=== PATIENT | female | born 1965 ===

== ENCOUNTER 2019-07-29 23:01 | Inpatient (IN) | payer BC ==
[2019-07-30 07:41] LABS: Basophils # (Auto) 0.1 K/mm3 (0.0-0.1); Basophils % (Auto) 0.7 % (0.0-1.8); Eosinophils # (Auto) 0.1 K/mm3 (0.0-0.4); Eosinophils % (Auto) 0.5 % (0.0-4.3); Hematocrit 30.7 % (30.3-42.9); Hemoglobin 10.1 gm/dl (10.1-14.3); Lymphocytes # (Auto) 2.4 K/mm3 (1.2-5.4); Lymphocytes % (Auto) 20.9 % (13.4-35.0); Mean Corpuscular HGB Conc 33 % (30-34); Mean Corpuscular Volume 86 fl (79-97); Monocytes # (Auto) 0.9 K/mm3 (0.0-0.8); Monocytes % (Auto) 7.5 % (0.0-7.3); Platelet Count 322 K/mm3 (140-440); Red Blood Count 3.57 M/mm3 (3.65-5.03); Red Cell Distribution Width 16.5 % (13.2-15.2)
[2019-07-30] MEDS ORDERED: PROVENTIL IH PRN ×2 (07:41→14:55)
[2019-07-30 08:02] LABS: Calcium 8.6 mg/dL (8.4-10.2)
--- NOTE | 2019-07-30 08:48 | Consultation ---
History of Present Illness - Reason for Consult Consult date: 07/30/19 medical management, Requesting physician: ALL PATEL - History of Present Illness Patient is a 53-year-old female with past medical history of anxiety disorder, CHF, COPD, CAD, depression, hyperlipidemia, hypertension, schizophrenia, GERD, who presents to us from referring facility with depression and suicidal thoughts Stating that she wanted to end her life. Per documentation the patient had in the past tried to overdose on pills. She does not endorse to any other medical condition but reports recent fall and injury to the right foot. she complains of multiple other psych issues but states she will rather speak to the psychiatrist. Per documentation review, the Patient was recently treated for Pneumonia, She denies any fever, nausea, vomiting or diarrhea Past History Past Medical History: GERD, hyperthyroidism, hypertension, hyperlipidemia Past Surgical History: No surgical history Social history: no significant social history, full code Family history: no significant family history Medications and Allergies Allergies Allergy/AdvReac Type Severity Reaction Status Date / Time IV Contrast AdvReac Kidneys Uncoded 07/30/19 01:35 shut down Home Medications Medication Instructions Recorded Confirmed Last Taken Type ALBUTEROL Inhaler (OR & NICU) 2 puff INHALATION Q6HR PRN 07/30/19 07/30/19 Unknown History Aspirin EC [Halfprin EC] 81 mg PO DAILY 07/30/19 07/30/19 Unknown History AtorvaSTATin [Lipitor] 40 mg PO DAILY 07/30/19 07/30/19 Unknown History Buprenorphine HCl [Belbuca] 75 mcg SUBMUCOSAL BID 07/30/19 07/30/19 Unknown History Buspirone HCl [busPIRone] 15 mg PO QID 07/30/19 07/30/19 Unknown History Clopidogrel [Plavix] 75 mg PO DAILY 07/30/19 07/30/19 Unknown History Fluticasone/Umeclidin/Vilanter 1 puff INHALATION DAILY 07/30/19 07/30/19 Unknown History [Trelegy Ellipta 100-62.5-25] Gabapentin [Neurontin] 900 mg PO TID 07/30/19 07/30/19 Unknown History Hydrocodone-Acetamin 1 - 2 tab PO Q8HR PRN 07/30/19 07/30/19 Unknown History Meclizine [Antivert] 25 mg PO TID PRN 07/30/19 07/30/19 Unknown History Metoprolol [Lopressor TAB] 50 mg PO BID 07/30/19 07/30/19 Unknown History OLANzapine [ZyPREXA] 10 mg PO QHS 07/30/19 07/30/19 Unknown History Pantoprazole [Protonix TAB] 40 mg PO DAILY 07/30/19 07/30/19 Unknown History Proventil 0.083% NEBS 3 ml INHALATION Q4HR PRN 07/30/19 07/30/19 Unknown History Venlafaxine [Effexor] 75 mg PO TID 07/30/19 07/30/19 Unknown History Vitamin D2 50,000 unit PO QWEEK 07/30/19 07/30/19 Unknown History traMADol [Ultram 50 MG tab] 50 mg PO Q8HR PRN 07/30/19 07/30/19 Unknown History Active Meds: Active Medications Albuterol (Proventil) 2.5 mg IH Q4HRT PRN PRN Reason: Shortness Of Breath Last Admin: 07/30/19 07:47 Dose: 2.5 mg Documented by: Review of Systems All systems: negative Constitutional: fatigue, weakness, lethargy, no weight loss, no weight gain, no fever, no chills, no sweats, no night sweats, no malaise Cardiovascular: no chest pain, no orthopnea, no palpitations, no rapid/irregular heart beat, no edema, no syncope Respiratory: no cough, no cough with sputum, no excessive sputum, no hemoptysis, no shortness of breath, no dyspnea on exertion Gastrointestinal: no abdominal pain, no nausea, no vomiting, no diarrhea, no constipation, no change in bowel habits, no hematochezia Musculoskeletal: frequent falls, other (RIGHT FOOT PAIN, CHRONIC IMPROVING), no neck pain, no arm numbness/tingling, no low back pain, no shooting leg pain, no leg numbness/tingling, no muscle weakness, no muscle cramps Integumentary: no deferred, no pruritis, no redness, no jaundice, no lesions, no depigmentation, no acne, no dryness Neurological: no transient paralysis, no weakness, no parathesias, no numbness, no tingling, no syncope, no convulsions, no change in speech, no confusion Psychiatric: anxiety, suicidal ideation, depression Endocrine: no heat intolerance, no polydipsia, no nocturia, no thyroid mass, no high blood sugars, no low blood sugars Allergic/Immunologic: no allergic rhinitis, no persistent infections, no angioedema Exam - Physical Exam Narrative exam: VITAL SIGNS: Reviewed. GENERAL: The patient appears normally developed, Vital signs as documented. HEAD: No signs of head trauma. EYES: Pupils are equal. Extraocular motions intact. EARS: Hearing grossly intact. MOUTH: Oropharynx is normal. NECK: No adenopathy, no JVD. CHEST: Chest with clear breath sounds bilaterally. No wheezes, rales, or rhonchi. CARDIAC: Regular rate and rhythm. S1 and S2, without murmurs, gallops, or rubs. VASCULAR: No Edema. Peripheral pulses normal and equal in all extremities. ABDOMEN: Soft, non tender and non distended. No rebound or guarding, and no masses palpated. Bowel Sounds normal. MUSCULOSKELETAL: Good range of motion of all major joints. Extremities without clubbing, cyanosis or edema. NEUROLOGIC EXAM: Alert and oriented x 3 No focal sensory or strength deficits. Speech normal. Follows commands. PSYCHIATRIC: Mood normal. SKIN: detail exam as documented in skin assessment, Echymosis on the right foot - Constitutional Vitals: Temp Pulse Resp BP Pulse Ox 81 16 100 07/30/19 07:47 07/30/19 07:47 07/30/19 07:52 Results - Labs CBC & Chem 7: 07/31/19 08:07 07/31/19 08:07 Labs: Abnormal lab results 07/30/19 07/30/19 07/30/19 Range/Units 03:46 07:29 07:29 WBC 11.4 H (4.5-11.0) K/mm3 RBC 3.57 L (3.65-5.03) M/mm3 RDW 16.5 H (13.2-15.2) % [place] % (Auto) 7.5 H (0.0-7.3) % [place] # 0.9 H (0.0-0.8) K/mm3 Seg Neutrophils % 70.4 H (40.0-70.0) % Seg Neutrophils # 8.0 H (1.8-7.7) K/mm3 Carbon Dioxide 20 L (22-30) mmol/L BUN 28 H (7-17) mg/dL Creatinine 1.4 H (0.7-1.2) mg/dL Glucose 107 H (65-100) mg/dL POC Glucose 129 H (70-105) Assessment and Plan Patient is a 53-year-old female with past medical history of anxiety disorder, CHF, COPD, CAD, depression, hyperlipidemia, hypertension, schizophrenia, GERD, w ho presents to us from referring facility with depression and suicidal thoughts Stating that she wanted to end her life. Per documentation the patient had in the past tried to overdose on pills. She does not endorse to any other medical condition but reports recent fall and injury to the right foot. she complains of multiple other psych issues but states she will rather speak to the psychiatrist. Per documentation review, the Patient was recently treated for Pneumonia, She denies any fever, nausea, vomiting or diarrhea PNA- Recently treated Leukocytosis secondary PNA DELIA secondary to vasomotor nephropathy creat of 1.4 ?baseline. Stable CHF COPD MORBID OBESITY RECENT INJURY TO RIGHT LEG, NO REPORT OF FRACTURE HTN HLP DEPRESSION SUICIDAL IDEATION SCHIZOPHRENIA GERD PLAN Monitor off Abx Repeat labs in am Resume all outside meds and defer psych meds to psychaitrist Check x ray of right foot counselling on weight loss Pain control DVT/GI prophy
--- NOTE | 2019-07-30 08:57 | History and Physical Report ---
GP History & Physical - History of Present Illness Date of admission: 07/29/19 Date of Examination: 07/30/19 Reason for Admission: Danger to self, Severe anxiety/depression Chief Complaint: Sucidal Ideations History of Present Illness: The patient is a 53 year old but unemployed female with history of Schizophrenia, Bipolar disorder, Anxiety disorder and multiple medical problems. She presents with depression and suicidal thoughts. In my interview with her this morning, she states that she wanted to end her life while receiving services at [place]. Pt states that her daughter 10 years ago in a car wreck at the age of 16, and she has been struggling with anxiety/ depression since. Pt stated that she is paranoid and constantly experience panic attacks that last about 15-20 mins, which her dogs comfort her through. Pt is not sleeping well and complains of insomnia meds not working. Pt stated that she have nightmares and flashbacks of the day she lost her daughter, which she believes is also a reason that she can not sleep at night. Pt stated that she feel lonely due to her marriage separation and adult children no longer wanting to visit her. Pt stated that there are voices in her head telling her to hurt other individuals, especially her and sometimes herself. She denies homicidal thoughts or intent. Pt stated that the voices tells her she is worthless and sometimes to harm herself. Pt states that she often start things and don't get them finish. Pt lives next door to her who she is currently from, pt stated that she do have a gun but her has already came to her house and hid the gun and she is not aware of the location of the gun. Pt has been admitted to a psychiatry unit 3-4 times after attempting a suicide overdose each time. Pt admits that she manages or has managed her condition by being sexual with multiple men or going out spending money on clothes. Pt stated that if she didn't have the money then she would steal from [facility]. Pt is concerned about her current medications and would like to know if the side effects are altering her mental health condition. Pt agreed to try new meds. Pt still drives, denies any diagnosis of PTSD and not seeing a psych physician due to insurance coverage. FAMILY HISTORY Sister has hx of depression Legal Status: Voluntary Patient Problems: Current Active Problems Schizoaffective disorder, bipolar type (Acute) Reaction to Hospitalization: Accepting Medications and Allergies Allergies Allergy/AdvReac Type Severity Reaction Status Date / Time IV Contrast AdvReac Kidneys Uncoded 07/30/19 01:35 shut down Home Medications Medication Instructions Recorded Confirmed Last Taken Type ALBUTEROL Inhaler (OR & NICU) 2 puff INHALATION Q6HR PRN 07/30/19 07/30/19 Unknown History Aspirin EC [Halfprin EC] 81 mg PO DAILY 07/30/19 07/30/19 Unknown History AtorvaSTATin [Lipitor] 40 mg PO DAILY 07/30/19 07/30/19 Unknown History Buprenorphine HCl [Belbuca] 75 mcg SUBMUCOSAL BID 07/30/19 07/30/19 Unknown History Buspirone HCl [busPIRone] 15 mg PO QID 07/30/19 07/30/19 Unknown History Clopidogrel [Plavix] 75 mg PO DAILY 07/30/19 07/30/19 Unknown History Fluticasone/Umeclidin/Vilanter 1 puff INHALATION DAILY 07/30/19 07/30/19 Unknown History [Trelegy Ellipta 100-62.5-25] Gabapentin [Neurontin] 900 mg PO TID 07/30/19 07/30/19 Unknown History Hydrocodone-Acetamin 1 - 2 tab PO Q8HR PRN 07/30/19 07/30/19 Unknown History Meclizine [Antivert] 25 mg PO TID PRN 07/30/19 07/30/19 Unknown History Metoprolol [Lopressor TAB] 50 mg PO BID 07/30/19 07/30/19 Unknown History OLANzapine [ZyPREXA] 10 mg PO QHS 07/30/19 07/30/19 Unknown History Pantoprazole [Protonix TAB] 40 mg PO DAILY 07/30/19 07/30/19 Unknown History Proventil 0.083% NEBS 3 ml INHALATION Q4HR PRN 07/30/19 07/30/19 Unknown History Venlafaxine [Effexor] 75 mg PO TID 07/30/19 07/30/19 Unknown History Vitamin D2 50,000 unit PO QWEEK 07/30/19 07/30/19 Unknown History traMADol [Ultram 50 MG tab] 50 mg PO Q8HR PRN 07/30/19 07/30/19 Unknown History Active Meds: Active Medications Albuterol (Proventil) 2.5 mg IH Q4HRT PRN PRN Reason: Shortness Of Breath Last Admin: 07/30/19 07:47 Dose: 2.5 mg Documented by: Substance History - Substance History Drug Use: none Hx Tobacco Use: Yes Tobacco Type: Cigarettes Cigarettes Packs Per Day: 1 How many years smokin Alcohol Use: No Past psychiatric history - Past Medical History Past Medical History: arthritis, COPD, GERD, hypertension (motion sickness), hyperlipidemia, other (anxiety, CHF, depression, ABRAMS, motion sickness, myocardial infarction, panic attack, schizophrenia, shortness of breath, sleep apnea, suicide attempts, pysch admission) Past Surgical History: hysterectomy, Other (Ankle fracture surgery, colonoscopy, Upper GI Endoscopy, colonoscopy, coronary angioplasty with stent placement, back surgery, cardiac surgery, cholecystectomy, oophorectomy) - past Psychiatric treatment and history Psych: Anxiety, Bipolar, Depression, Panic, Schizophrenia psychiatric treatment history: Pt denies ever being prescribed Depakene, Tegretol, [place] or Risperidone but agrees to the treatment plan and is willing to try the medications to better her symptoms. - Social History Social history: , Lives alone, smoking Review of Systems All systems: negative Psychiatric: anxiety, insomnia, suicidal ideation, hallucinations, paranoia, depression, anxiety attacks, sadness/tearfullness Results - Results Labs/Vitals: Laboratory Last Values WBC 11.4 K/mm3 (4.5-11.0) H 07/30/19 07:29 RBC 3.57 M/mm3 (3.65-5.03) L 07/30/19 07:29 Hgb 10.1 gm/dl (10.1-14.3) 07/30/19 07:29 Hct 30.7 % (30.3-42.9) 07/30/19 07:29 MCV 86 fl (79-97) 07/30/19 07:29 MCH 28 pg (28-32) 07/30/19 07:29 MCHC 33 % (30-34) 07/30/19 07:29 RDW 16.5 % (13.2-15.2) H 07/30/19 07:29 Plt Count 322 K/mm3 (140-440) 07/30/19 07:29 Lymph % (Auto) 20.9 % (13.4-35.0) 07/30/19 07:29 [place] % (Auto) 7.5 % (0.0-7.3) H 07/30/19 07:29 Eos % (Auto) 0.5 % (0.0-4.3) 07/30/19 07:29 Baso % (Auto) 0.7 % (0.0-1.8) 07/30/19 07:29 Lymph # 2.4 K/mm3 (1.2-5.4) 07/30/19 07:29 [place] # 0.9 K/mm3 (0.0-0.8) H 07/30/19 07:29 Eos # 0.1 K/mm3 (0.0-0.4) 07/30/19 07:29 Baso # 0.1 K/mm3 (0.0-0.1) 07/30/19 07:29 Seg Neutrophils % 70.4 % (40.0-70.0) H 07/30/19 07:29 Seg Neutrophils # 8.0 K/mm3 (1.8-7.7) H 07/30/19 07:29 Sodium 139 mmol/L (137-145) 07/30/19 07:29 Potassium 4.0 mmol/L (3.6-5.0) 07/30/19 07:29 Chloride 106.0 mmol/L (98-107) 07/30/19 07:29 Carbon Dioxide 20 mmol/L (22-30) L 07/30/19 07:29 Anion Gap 17 mmol/L 07/30/19 07:29 BUN 28 mg/dL (7-17) H 07/30/19 07:29 Creatinine 1.4 mg/dL (0.7-1.2) H 07/30/19 07:29 Estimated GFR 39 ml/min 07/30/19 07:29 BUN/Creatinine Ratio 20 % 07/30/19 07:29 Glucose 107 mg/dL (65-100) H 07/30/19 07:29 POC Glucose 129 (70-105) H 07/30/19 03:46 Hemoglobin A1c 5.7 % (4-6) 07/30/19 07:29 Calcium 8.6 mg/dL (8.4-10.2) 07/30/19 07:29 Last Vital Signs Temp Pulse 81 07/30/19 07:47 Resp 16 07/30/19 07:47 BP Pulse Ox 100 07/30/19 07:52 Physical Examination - Constitutional Vitals: Vital Signs Temp Pulse Resp BP Pulse Ox 81 16 100 07/30/19 07:47 07/30/19 07:47 07/30/19 07:52 General appearance: Present: no acute distress, well-nourished, obese - EENT Eyes: Present: PERRL, EOM intact ENT: hearing intact, clear oral mucosa - Neck Neck: Present: supple, normal ROM - Respiratory Respiratory effort: normal Mental Status Exam - Vital signs Last Vital Signs Temp Pulse 81 07/30/19 07:47 Resp 16 07/30/19 07:47 BP Pulse Ox 100 07/30/19 07:52 - Exam Orientation: time, place, person Affect: depressed Mood: congruent with affect Thought content: delusions, paranoia Thought Process: Intact Perceptions: auditory, hallucinations Speech: normal rate and pattern Concentration: focused Motor activity: normal Level of consciousness: alert Memory: Intact Sleep Symptoms: Insomnia Interaction: cooperative Mini mental status exam(if necessary): 24-30 Assessment and Plan - Psychiatric problem (1) Schizoaffective disorder, bipolar type Current Visit: Yes Status: Acute plan to address problem: Patient will be admitted for inpatient psychiatric evaluation, medication adjustment and close monitoring The patient's behavior, mood, sleep and appetite will be closely monitored. Patient will be enrolled in individual and group therapeutic sessions and encouraged to attend. Patient will be provided with a safe and structured environment. Patient's physical health needs will be addressed by the Hospitalist. Social Assessment will be completed and the Tub Tender will work with patient and family to ensure a suitable and safe disposition Medication adjustment will be made as clinically indicated The patient agreed on the treatment plan, understood the risk, benefit, alternative treatment, potential consequence of no treatment, and gave informed consent. Physician Certification - Certification Statement Physician Certification Statement: This is an acknowledgement statement that HUGO GIBBONS is a 53 year old F who requires inpatient psychiatric admission for treatment which could reasonably be expected to improve the patient's condition for SCHIZOAFFECTIVE DISORDER Estimated period of time patient will need to remain in the hospital: [7 DAYS ] Plan for post-hospital care: [ OUTPATIENT TREATMENT] Medications & Allergies - Medications Allergies/Adverse Reactions: Allergies IV Contrast Adverse Reaction (Uncoded 07/30/19 01:35) Kidneys shut down Home Medications: Home Medications Medication Instructions Recorded Confirmed Last Taken Type ALBUTEROL Inhaler (OR & NICU) 2 puff INHALATION Q6HR PRN 07/30/19 07/30/19 Unknown History Aspirin EC [Halfprin EC] 81 mg PO DAILY 07/30/19 07/30/19 Unknown History AtorvaSTATin [Lipitor] 40 mg PO DAILY 07/30/19 07/30/19 Unknown History Buprenorphine HCl [Belbuca] 75 mcg SUBMUCOSAL BID 07/30/19 07/30/19 Unknown History Buspirone HCl [busPIRone] 15 mg PO QID 07/30/19 07/30/19 Unknown History Clopidogrel [Plavix] 75 mg PO DAILY 07/30/19 07/30/19 Unknown History Fluticasone/Umeclidin/Vilanter 1 puff INHALATION DAILY 07/30/19 07/30/19 Unknown History [Trelegy Ellipta 100-62.5-25] Gabapentin [Neurontin] 900 mg PO TID 07/30/19 07/30/19 Unknown History Hydrocodone-Acetamin 1 - 2 tab PO Q8HR PRN 07/30/19 07/30/19 Unknown History Meclizine [Antivert] 25 mg PO TID PRN 07/30/19 07/30/19 Unknown History Metoprolol [Lopressor TAB] 50 mg PO BID 07/30/19 07/30/19 Unknown History OLANzapine [ZyPREXA] 10 mg PO QHS 07/30/19 07/30/19 Unknown History Pantoprazole [Protonix TAB] 40 mg PO DAILY 07/30/19 07/30/19 Unknown History Proventil 0.083% NEBS 3 ml INHALATION Q4HR PRN 07/30/19 07/30/19 Unknown History Venlafaxine [Effexor] 75 mg PO TID 07/30/19 07/30/19 Unknown History Vitamin D2 50,000 unit PO QWEEK 07/30/19 07/30/19 Unknown History traMADol [Ultram 50 MG tab] 50 mg PO Q8HR PRN 07/30/19 07/30/19 Unknown History Active Medications: Generic Name Dose Route Start Last Admin Trade Name Freq PRN Reason Stop Dose Admin Albuterol 2.5 mg 07/30/19 07:41 07/30/19 07:47 Proventil IH 2.5 mg Q4HRT PRN Administration Shortness Of Breath Albuterol 2.5 mg 07/30/19 14:55 Proventil IH Q4HRT PRN Wheezing Aspirin 81 mg 07/30/19 15:00 Halfprin Ec PO DAILY [facility] Atorvastatin Calcium 40 mg 07/30/19 14:45 Lipitor PO DAILY [facility] Clopidogrel Bisulfate 75 mg 07/30/19 15:00 Plavix PO DAILY [facility] Gabapentin 900 mg 07/30/19 20:00 Neurontin PO TID [facility] Meclizine HCl 25 mg 07/30/19 14:40 Antivert PO TID PRN Vertigo Metoprolol Tartrate 50 mg 07/30/19 15:00 Lopressor PO BID [facility] Miscellaneous Medication 75 mcg 07/30/19 14:45 Buprenorphine Hcl [Belbuca] SUBMUCOSAL BID [facility] Miscellaneous Medication 15 mg 07/30/19 18:00 Buspirone Hcl [Buspirone] PO QID [facility] Miscellaneous Medication 1 puff 07/30/19 14:45 Fluticasone/Umeclidin/Vilanter [Trelegy Ellipta 100-62.5-25] INHALATION DAILY [facility] Miscellaneous Medication 1 - 2 tab 07/30/19 14:40 Hydrocodone-Acetamin 10-325/15 PO Q8HR PRN SEVERE PAIN Miscellaneous Medication 3 ml 07/30/19 14:40 Proventil 0.083% Nebs INHALATION Q4HR PRN Wheezing Miscellaneous Medication 50,000 unit 08/06/19 10:00 Vitamin D2 PO QWEEK [facility] Nicotine 21 mg 07/30/19 15:00 Habitrol TD QDAY [facility] Olanzapine 10 mg 07/30/19 22:00 Zyprexa PO QHS [facility] Pantoprazole Sodium 40 mg 07/30/19 15:00 Protonix PO DAILY [facility] Venlafaxine HCl 75 mg 07/30/19 20:00 Effexor PO TID [facility]
--- NOTE | 2019-07-30 10:06 | Progress Note ---
Subjective Date of service: 07/30/19 Principal diagnosis: Anxiety/Depression Subjective Comment: 53 year old female stated that she wanted to end her life while receiving services at [facility]. Pt states that her daughter 10 years ago and she has been struggling with anxiety/ depression since. Pt stated that she feel lonely due to her marriage separation and adult children no longer wanting to visit her. Objective - Criteria for Continued Treatment Criteria for Continued Treatment: Understanding Diagnosis and need for Medication, Improving Treatment / Medication Compliance - Mental Status Mental Status: Oriented x 3 - Objective Observation Participation Level: Full Medications and Allergies Allergies Allergy/AdvReac Type Severity Reaction Status Date / Time IV Contrast AdvReac Kidneys Uncoded 07/30/19 01:35 shut down Home Medications Medication Instructions Recorded Confirmed Last Taken Type ALBUTEROL Inhaler (OR & NICU) 2 puff INHALATION Q6HR PRN 07/30/19 07/30/19 Unknown History Aspirin EC [Halfprin EC] 81 mg PO DAILY 07/30/19 07/30/19 Unknown History AtorvaSTATin [Lipitor] 40 mg PO DAILY 07/30/19 07/30/19 Unknown History Buprenorphine HCl [Belbuca] 75 mcg SUBMUCOSAL BID 07/30/19 07/30/19 Unknown History Buspirone HCl [busPIRone] 15 mg PO QID 07/30/19 07/30/19 Unknown History Clopidogrel [Plavix] 75 mg PO DAILY 07/30/19 07/30/19 Unknown History Fluticasone/Umeclidin/Vilanter 1 puff INHALATION DAILY 07/30/19 07/30/19 Unknown History [Trelegy Ellipta 100-62.5-25] Gabapentin [Neurontin] 900 mg PO TID 07/30/19 07/30/19 Unknown History Hydrocodone-Acetamin 1 - 2 tab PO Q8HR PRN 07/30/19 07/30/19 Unknown History Meclizine [Antivert] 25 mg PO TID PRN 07/30/19 07/30/19 Unknown History Metoprolol [Lopressor TAB] 50 mg PO BID 07/30/19 07/30/19 Unknown History OLANzapine [ZyPREXA] 10 mg PO QHS 07/30/19 07/30/19 Unknown History Pantoprazole [Protonix TAB] 40 mg PO DAILY 07/30/19 07/30/19 Unknown History Proventil 0.083% NEBS 3 ml INHALATION Q4HR PRN 07/30/19 07/30/19 Unknown History Venlafaxine [Effexor] 75 mg PO TID 07/30/19 07/30/19 Unknown History Vitamin D2 50,000 unit PO QWEEK 07/30/19 07/30/19 Unknown History traMADol [Ultram 50 MG tab] 50 mg PO Q8HR PRN 07/30/19 07/30/19 Unknown History Active Meds: Active Medications Albuterol (Proventil) 2.5 mg IH Q4HRT PRN PRN Reason: Shortness Of Breath Last Admin: 07/30/19 07:47 Dose: 2.5 mg Documented by: Results - Results Labs/Vitals: Laboratory Last Values WBC 11.4 K/mm3 (4.5-11.0) H 07/30/19 07:29 RBC 3.57 M/mm3 (3.65-5.03) L 07/30/19 07:29 Hgb 10.1 gm/dl (10.1-14.3) 07/30/19 07:29 Hct 30.7 % (30.3-42.9) 07/30/19 07:29 MCV 86 fl (79-97) 07/30/19 07:29 MCH 28 pg (28-32) 07/30/19 07:29 MCHC 33 % (30-34) 07/30/19 07:29 RDW 16.5 % (13.2-15.2) H 07/30/19 07:29 Plt Count 322 K/mm3 (140-440) 07/30/19 07:29 Lymph % (Auto) 20.9 % (13.4-35.0) 07/30/19 07:29 [place] % (Auto) 7.5 % (0.0-7.3) H 07/30/19 07:29 Eos % (Auto) 0.5 % (0.0-4.3) 07/30/19 07:29 Baso % (Auto) 0.7 % (0.0-1.8) 07/30/19 07:29 Lymph # 2.4 K/mm3 (1.2-5.4) 07/30/19 07:29 [place] # 0.9 K/mm3 (0.0-0.8) H 07/30/19 07:29 Eos # 0.1 K/mm3 (0.0-0.4) 07/30/19 07:29 Baso # 0.1 K/mm3 (0.0-0.1) 07/30/19 07:29 Seg Neutrophils % 70.4 % (40.0-70.0) H 07/30/19 07:29 Seg Neutrophils # 8.0 K/mm3 (1.8-7.7) H 07/30/19 07:29 Sodium 139 mmol/L (137-145) 07/30/19 07:29 Potassium 4.0 mmol/L (3.6-5.0) 07/30/19 07:29 Chloride 106.0 mmol/L (98-107) 07/30/19 07:29 Carbon Dioxide 20 mmol/L (22-30) L 07/30/19 07:29 Anion Gap 17 mmol/L 07/30/19 07:29 BUN 28 mg/dL (7-17) H 07/30/19 07:29 Creatinine 1.4 mg/dL (0.7-1.2) H 07/30/19 07:29 Estimated GFR 39 ml/min 07/30/19 07:29 BUN/Creatinine Ratio 20 % 07/30/19 07:29 Glucose 107 mg/dL (65-100) H 07/30/19 07:29 POC Glucose 129 (70-105) H 07/30/19 03:46 Hemoglobin A1c 5.7 % (4-6) 07/30/19 07:29 Calcium 8.6 mg/dL (8.4-10.2) 07/30/19 07:29 Last Vital Signs Temp Pulse 81 07/30/19 07:47 Resp 16 07/30/19 07:47 BP Pulse Ox 100 07/30/19 07:52
[2019-07-30] MEDS ORDERED: PROVENTIL INHALATION PRN (14:40)
[2019-07-30] MEDS ORDERED: ANTIVERT PO PRN (14:40)
[2019-07-30] MEDS ORDERED: [UNRECOGNIZED DRUG - REMARK] INHALATION PRN (14:40)
[2019-07-30] MEDS ORDERED: HYDROCODONE ACETAMIN PO PRN (14:40)
[2019-07-30] MEDS ORDERED: VILANTER INHALATION SCH (14:45)
[2019-07-30] MEDS ORDERED: UMECLIDIN INHALATION SCH (14:45)
[2019-07-30] MEDS ORDERED: BUPRENORPHINE HCL 75 MCG SUBMUCOSAL SCH (14:45)
[2019-07-30] MEDS ORDERED: FLUTICASONE INHALATION SCH (14:45)
[2019-07-30] MEDS: HALFPRIN EC PO SCH (15:58)
[2019-07-30] MEDS: CYMBALTA PO SCH (15:58)
[2019-07-30] MEDS: PLAVIX PO SCH (15:58)
[2019-07-30] MEDS: LOPRESSOR PO SCH ×2 (15:58→21:08)
[2019-07-30] MEDS: PROTONIX PO SCH (15:58)
[2019-07-30] MEDS: HABITROL TD SCH (15:59)
[2019-07-30] MEDS: BUSPAR PO SCH ×4 (17:22→21:07)
[2019-07-30] MEDS ORDERED: NON-FORMULARY (Buspirone Hcl [Buspirone] 15 MG) PO SCH (18:00)
[2019-07-30] MEDS ORDERED: EFFEXOR PO SCH (20:00)
[2019-07-30] MEDS: NEURONTIN PO SCH (21:08)
[2019-07-30] MEDS: MINIPRESS PO SCH (21:12)
--- NOTE | 2019-07-31 07:38 | Progress Note ---
Subjective Date of service: 07/31/19 Principal diagnosis: Severe Depression/Anxiety Subjective Comment: Patient is depressed, anxious and suicidal. She is compliant with her medications and denies side effect Nursing note states that Pt is still verbalizing SI due to ongoing depression. She is a/o x 4 mood and affect is appropriate. Pt had a good night and slept for 7hrs. MSE Orientation: place Affect: normal Mood: calm Thought Process: Disorganized, Disoriented Perceptions: none Speech: paucity Motor activity: normal Level of consciousness: confused Memory: Intact Interaction: cooperative Objective - Criteria for Continued Treatment Criteria for Continued Treatment: Improving Level of Functioning, Stablizing Level of Functioning, Improving Emotional/Socia - Objective Observation Participation Level: Minimal Assessment and Plan - Patient Problems (1) Schizoaffective disorder, bipolar type Current Visit: Yes Status: Acute Plan to address problem: Patient will be admitted for inpatient psychiatric evaluation, medication adjustment and close monitoring The patient's behavior, mood, sleep and appetite will be closely monitored. Patient will be enrolled in individual and group therapeutic sessions and encouraged to attend. Patient will be provided with a safe and structured environment. Patient's physical health needs will be addressed by the Hospitalist. Social Assessment will be completed and the Reporting Developer will work with patient and family to ensure a suitable and safe disposition Medication adjustment will be made as clinically indicated Patient was started on Clonazepam, Depakote, Quetiapine, Cymbalta and Venlafaxine & Olazapine were discontinued yesterday The patient agreed on the treatment plan, understood the risk, benefit, alternative treatment, potential consequence of no treatment, and gave informed consent. Medications and Allergies Allergies Allergy/AdvReac Type Severity Reaction Status Date / Time IV Contrast AdvReac Kidneys Uncoded 07/30/19 01:35 shut down Home Medications Medication Instructions Recorded Confirmed Last Taken Type ALBUTEROL Inhaler (OR & NICU) 2 puff INHALATION Q6HR PRN 07/30/19 07/30/19 Unknown History Aspirin EC [Halfprin EC] 81 mg PO DAILY 07/30/19 07/30/19 Unknown History AtorvaSTATin [Lipitor] 40 mg PO DAILY 07/30/19 07/30/19 Unknown History Buprenorphine HCl [Belbuca] 75 mcg SUBMUCOSAL BID 07/30/19 07/30/19 Unknown History Buspirone HCl [busPIRone] 15 mg PO QID 07/30/19 07/30/19 Unknown History Clopidogrel [Plavix] 75 mg PO DAILY 07/30/19 07/30/19 Unknown History Fluticasone/Umeclidin/Vilanter 1 puff INHALATION DAILY 07/30/19 07/30/19 Unknown History [Trelegy Ellipta 100-62.5-25] Gabapentin [Neurontin] 900 mg PO TID 07/30/19 07/30/19 Unknown History Hydrocodone-Acetamin 1 - 2 tab PO Q8HR PRN 07/30/19 07/30/19 Unknown History Meclizine [Antivert] 25 mg PO TID PRN 07/30/19 07/30/19 Unknown History Metoprolol [Lopressor TAB] 50 mg PO BID 07/30/19 07/30/19 Unknown History OLANzapine [ZyPREXA] 10 mg PO QHS 07/30/19 07/30/19 Unknown History Pantoprazole [Protonix TAB] 40 mg PO DAILY 07/30/19 07/30/19 Unknown History Proventil 0.083% NEBS 3 ml INHALATION Q4HR PRN 07/30/19 07/30/19 Unknown History Venlafaxine [Effexor] 75 mg PO TID 07/30/19 07/30/19 Unknown History Vitamin D2 50,000 unit PO QWEEK 07/30/19 07/30/19 Unknown History traMADol [Ultram 50 MG tab] 50 mg PO Q8HR PRN 07/30/19 07/30/19 Unknown History Active Meds: Active Medications Albuterol (Proventil) 2.5 mg IH Q4HRT PRN PRN Reason: Shortness Of Breath Last Admin: 07/30/19 07:47 Dose: 2.5 mg Documented by: Aspirin (Halfprin Ec) 81 mg PO DAILY [facility] Last Admin: 07/30/19 15:58 Dose: 81 mg Documented by: Atorvastatin Calcium (Lipitor) 40 mg PO DAILY [facility] Last Admin: 07/30/19 15:58 Dose: 40 mg Documented by: Buspirone HCl (Buspar) 10 mg PO QID [facility] Last Admin: 07/30/19 21:07 Dose: 10 mg Documented by: Buspirone HCl (Buspar) 5 mg PO QID [facility] Last Admin: 10/15/19 21:06 Dose: 5 mg Documented by: Clonazepam (Klonopin) 0.5 mg PO BID [facility] Last Admin: 07/30/19 21:07 Dose: 0.5 mg Documented by: Clopidogrel Bisulfate (Plavix) 75 mg PO DAILY [facility] Last Admin: 07/30/19 15:58 Dose: 75 mg Documented by: Divalproex Sodium (Depakote Er) 1,000 mg PO QDAY [facility] Duloxetine HCl (Cymbalta) 60 mg PO QDAY [facility] Last Admin: 07/30/19 15:58 Dose: 60 mg Documented by: Ergocalciferol (Vitamin D2) 50,000 unit PO Sa [facility] Gabapentin (Neurontin) 900 mg PO TID [facility] Last Admin: 07/30/19 21:08 Dose: 900 mg Documented by: Meclizine HCl (Antivert) 25 mg PO TID PRN PRN Reason: Vertigo Metoprolol Tartrate (Lopressor) 50 mg PO BID [facility] Last Admin: 07/30/19 21:08 Dose: 50 mg Documented by: Miscellaneous Medication (Buprenorphine Hcl [Belbuca]) 75 mcg SUBMUCOSAL BID [facility] Miscellaneous Medication (Fluticasone/Umeclidin/Vilanter [Trelegy Ellipta 100-62.5-25]) 1 puff INHALATION DAILY [facility] Nicotine (Habitrol) 21 mg TD QDAY [facility] Last Admin: 07/30/19 15:59 Dose: 21 mg Documented by: Pantoprazole Sodium (Protonix) 40 mg PO DAILY [facility] Last Admin: 07/30/19 15:58 Dose: 40 mg Documented by: Prazosin HCl (Minipress) 1 mg PO HS [facility] Last Admin: 07/30/19 21:12 Dose: 1 mg Documented by: Quetiapine Fumarate (Seroquel) 200 mg PO QHS [facility] Last Admin: 07/30/19 21:07 Dose: 200 mg Documented by: Results - Results Labs/Vitals: Laboratory Last Values WBC 11.4 K/mm3 (4.5-11.0) H 07/30/19 07:29 RBC 3.57 M/mm3 (3.65-5.03) L 07/30/19 07:29 Hgb 10.1 gm/dl (10.1-14.3) 07/30/19 07:29 Hct 30.7 % (30.3-42.9) 07/30/19 07: MCV 86 fl (79-97) 07/30/19 07: MCH 28 pg (28-32) 07/30/19 07: MCHC 33 % (30-34) 07/30/19 07:29 RDW 16.5 % (13.2-15.2) H 07/30/19 07:29 Plt Count 322 K/mm3 (140-440) 07/30/19 07:29 Lymph % (Auto) 20.9 % (13.4-35.0) 07/30/19 07:29 [place] % (Auto) 7.5 % (0.0-7.3) H 07/30/19 07: Eos % (Auto) 0.5 % (0.0-4.3) 07/30/19 07: Baso % (Auto) 0.7 % (0.0-1.8) 07/30/19 07: Lymph # 2.4 K/mm3 (1.2-5.4) 07/30/19 07: [place] # 0.9 K/mm3 (0.0-0.8) H 07/30/19 07: Eos # 0.1 K/mm3 (0.0-0.4) 07/30/19 07: Baso # 0.1 K/mm3 (0.0-0.1) 07/30/19 07:29 Seg Neutrophils % 70.4 % (40.0-70.0) H 07/30/19 07: Seg Neutrophils # 8.0 K/mm3 (1.8-7.7) H 07/30/19 07:29 Sodium 139 mmol/L (137-145) 07/30/19 07:29 Potassium 4.0 mmol/L (3.6-5.0) 07/30/19 07: Chloride 106.0 mmol/L (98-107) 07/30/19 07:29 Carbon Dioxide 20 mmol/L (22-30) L 07/30/19 07:29 Anion Gap 17 mmol/L 07/30/19 07:29 BUN 28 mg/dL (7-17) H 07/30/19 07:29 Creatinine 1.4 mg/dL (0.7-1.2) H 07/30/19 07:29 Estimated GFR 39 ml/min 07/30/19 07:29 BUN/Creatinine Ratio 20 % 07/30/19 07:29 Glucose 107 mg/dL (65-100) H 07/30/19 07:29 POC Glucose 89 (70-105) 07/30/19 20:04 Hemoglobin A1c 5.7 % (4-6) 07/30/19 07:29 Calcium 8.6 mg/dL (8.4-10.2) 07/30/19 07:29 Last Vital Signs Temp 97.6 F 07/30/19 19:26 Pulse 81 07/30/19 19:26 Resp 20 07/30/19 19:26 BP 176/79 07/30/19 19:26 Pulse Ox 99 07/30/19 20:37
[2019-07-31 08:42] LABS: Hematocrit 33.1 % (30.3-42.9); Hemoglobin 10.9 gm/dl (10.1-14.3); Mean Corpuscular HGB Conc 33 % (30-34); Mean Corpuscular Volume 87 fl (79-97); Platelet Count 339 K/mm3 (140-440); Red Blood Count 3.81 M/mm3 (3.65-5.03); Red Cell Distribution Width 16.4 % (13.2-15.2)
[2019-07-31 09:05] LABS: Calcium 8.8 mg/dL (8.4-10.2)
[2019-07-31 09:27] LABS: Chol/HDL Ratio 3.16 %
[2019-07-31] MEDS ORDERED: VISTARIL PO PRN (10:33)
[2019-07-31] MEDS: CYMBALTA PO SCH (11:06)
[2019-07-31] MEDS: PROTONIX PO SCH (11:06)
[2019-07-31] MEDS: BUSPAR PO SCH ×7 (11:06→21:01)
[2019-07-31] MEDS: HALFPRIN EC PO SCH (11:07)
[2019-07-31] MEDS: PLAVIX PO SCH (11:07)
[2019-07-31] MEDS: NEURONTIN PO SCH ×3 (11:07→20:41)
[2019-07-31] MEDS: HABITROL TD SCH (11:08)
[2019-07-31] MEDS: LOPRESSOR PO SCH ×2 (11:08→21:02)
--- NOTE | 2019-07-31 17:54 | XRay Report ---
RIGHT FOOT 3 VIEWS INDICATION / CLINICAL INFORMATION: Ankle surgery 8 weeks ago, fell swollen and bruised foot COMPARISON: None available. FINDINGS: BONES / JOINT(S): There is osteopenia in the foot. There is soft tissue swelling in the foot and ankl e. There is mild degenerative change in the midfoot and in the interphalangeal joints. There has been ORIF of bilateral malleolar fractures. There is a screw-plate device the distal fibula. There are 2 screws in the medial malleolus as well as anchor device. Medial malleolar fracture is ununited but is transfixed by hardware. SOFT TISSUES: Soft tissue swelling is noted ADDITIONAL FINDINGS: None. Signer Name: Sabino Kendrick MD Signed: 07/31/2019 5:50 PM Workstation Name: [id number]
[2019-07-31] MEDS: MINIPRESS PO SCH (21:03)
[2019-08-01] MEDS: ULTRAM PO PRN ×3 (02:37→21:50)
--- NOTE | 2019-08-01 07:43 | Progress Note ---
Subjective Date of service: 08/01/19 Principal diagnosis: Severe Depression/Anxiety Subjective Comment: Patient reports improving mood. She reportedly fell last night. The fall was unannounced and unwitnessed. Pt denies SI/depression and states that the meds are improving her symptoms. Overall Pt is compliant and slept well throughout the night. MSE Orientation: place Affect: normal Mood: calm Thought Process: Linear Perceptions: none Speech: normal Motor activity: normal Level of consciousness: alert Memory: Intact Interaction: cooperative Objective - Criteria for Continued Treatment Criteria for Continued Treatment: Improving Level of Functioning, Stablizing Level of Functioning, Improving Emotional/Socia - Mental Status Mental Status: Oriented x 3 - Objective Observation Participation Level: Moderate Assessment and Plan - Patient Problems (1) Schizoaffective disorder, bipolar type Current Visit: Yes Status: Acute Plan to address problem: Patient will be admitted for inpatient psychiatric evaluation, medication adjustment and close monitoring The patient's behavior, mood, sleep and appetite will be closely monitored. Patient will be enrolled in individual and group therapeutic sessions and encouraged to attend. Patient will be provided with a safe and structured environment. Patient's physical health needs will be addressed by the Hospitalist. Social Assessment will be completed and the Alcohol And Drug Counselor will work with patient and family to ensure a suitable and safe disposition Medication adjustment will be made as clinically indicated The patient agreed on the treatment plan, understood the risk, benefit, alternative treatment, potential consequence of no treatment, and gave informed consent. Medications and Allergies Allergies Allergy/AdvReac Type Severity Reaction Status Date / Time IV Contrast AdvReac Kidneys Uncoded 07/30/19 01:35 shut down Home Medications Medication Instructions Recorded Confirmed Last Taken Type ALBUTEROL Inhaler (OR & NICU) 2 puff INHALATION Q6HR PRN 07/30/19 07/30/19 Unknown History Aspirin EC [Halfprin EC] 81 mg PO DAILY 07/30/19 07/30/19 Unknown History AtorvaSTATin [Lipitor] 40 mg PO DAILY 07/30/19 07/30/19 Unknown History Buprenorphine HCl [Belbuca] 75 mcg SUBMUCOSAL BID 07/30/19 07/30/19 Unknown History Buspirone HCl [busPIRone] 15 mg PO QID 07/30/19 07/30/19 Unknown History Clopidogrel [Plavix] 75 mg PO DAILY 07/30/19 07/30/19 Unknown History Fluticasone/Umeclidin/Vilanter 1 puff INHALATION DAILY 07/30/19 07/30/19 Unknown History [Trelegy Ellipta 100-62.5-25] Gabapentin [Neurontin] 900 mg PO TID 07/30/19 07/30/19 Unknown History Meclizine [Antivert] 25 mg PO TID PRN 07/30/19 07/30/19 Unknown History Metoprolol [Lopressor TAB] 50 mg PO BID 07/30/19 07/30/19 Unknown History Pantoprazole [Protonix TAB] 40 mg PO DAILY 07/30/19 07/30/19 Unknown History Proventil 0.083% NEBS 3 ml INHALATION Q4HR PRN 07/30/19 07/30/19 Unknown History Vitamin D2 50,000 unit PO QWEEK 07/30/19 07/30/19 Unknown History traMADol [Ultram 50 MG tab] 50 mg PO Q8HR PRN 07/30/19 07/30/19 Unknown History DULoxetine [Cymbalta] 60 mg PO QDAY #60 capsule 08/01/19 Unknown Rx Divalproex ER [Depakote ER] 1,000 mg PO QDAY #90 tablet 08/01/19 Unknown Rx Prazosin [Minipress] 1 mg PO HS #30 capsule 08/01/19 Unknown Rx QUEtiapine [SEROquel] 200 mg PO QHS #30 tablet 08/01/19 Unknown Rx clonazePAM [KlonoPIN] 0.5 mg PO HS #14 tablet 08/01/19 Unknown Rx hydrOXYzine PAMOATE [Vistaril] 50 mg PO Q6H PRN #90 capsule 08/01/19 Unknown Rx Active Meds: Active Medications Albuterol (Proventil) 2.5 mg IH Q4HRT PRN PRN Reason: Shortness Of Breath Last Admin: 07/30/19 07:47 Dose: 2.5 mg Documented by: Aspirin (Halfprin Ec) 81 mg PO DAILY [facility] Last Admin: 07/31/19 11:07 Dose: 81 mg Documented by: Atorvastatin Calcium (Lipitor) 40 mg PO DAILY [facility] Last Admin: 07/31/19 11:07 Dose: 40 mg Documented by: Buspirone HCl (Buspar) 15 mg PO QID [facility] Last Admin: 07/31/19 21:01 Dose: 15 mg Documented by: Clonazepam (Klonopin) 0.5 mg PO BID [facility] Last Admin: 07/31/19 21:01 Dose: 0.5 mg Documented by: Clopidogrel Bisulfate (Plavix) 75 mg PO DAILY [facility] Last Admin: 07/31/19 11:07 Dose: 75 mg Documented by: Divalproex Sodium (Depakote Er) 1,000 mg PO QDAY [facility] Last Admin: 07/31/19 11:07 Dose: 1,000 mg Documented by: Duloxetine HCl (Cymbalta) 60 mg PO QDAY [facility] Last Admin: 07/31/19 11:06 Dose: 60 mg Documented by: Ergocalciferol (Vitamin D2) 50,000 unit PO Sa [facility] Gabapentin (Neurontin) 900 mg PO TID [facility] Last Admin: 07/31/19 20:41 Dose: 900 mg Documented by: Hydroxyzine Pamoate (Vistaril) 50 mg PO Q6H PRN PRN Reason: Anxiety Meclizine HCl (Antivert) 25 mg PO TID PRN PRN Reason: Vertigo Metoprolol Tartrate (Lopressor) 50 mg PO BID [facility] Last Admin: 07/31/19 21:02 Dose: 50 mg Documented by: Miscellaneous Medication (Buprenorphine Hcl [Belbuca]) 75 mcg SUBMUCOSAL BID [facility] Miscellaneous Medication (Fluticasone/Umeclidin/Vilanter [Trelegy Ellipta 100-62.5-25]) 1 puff INHALATION DAILY [facility] Nicotine (Habitrol) 21 mg TD QDAY [facility] Last Admin: 07/31/19 11:08 Dose: 21 mg Documented by: Pantoprazole Sodium (Protonix) 40 mg PO DAILY [facility] Last Admin: 07/31/19 11:06 Dose: 40 mg Documented by: Prazosin HCl (Minipress) 1 mg PO HS [facility] Last Admin: 07/31/19 21:03 Dose: 1 mg Documented by: Quetiapine Fumarate (Seroquel) 200 mg PO QHS [facility] Last Admin: 07/31/19 21:02 Dose: 200 mg Documented by: Tramadol HCl (Ultram) 50 mg PO Q6H PRN PRN Reason: Pain, Moderate (4-6) Stop: 08/02/19 23:59 Last Admin: 08/01/19 02:37 Dose: 50 mg Documented by: Results - Results Labs/Vitals: Laboratory Last Values WBC 8.3 K/mm3 (4.5-11.0) 07/31/19 08:07 RBC 3.81 M/mm3 (3.65-5.03) 07/31/19 08:07 Hgb 10.9 gm/dl (10.1-14.3) 07/31/19 08:07 Hct 33.1 % (30.3-42.9) 07/31/19 08:07 MCV 87 fl (79-97) 07/31/19 08:07 MCH 29 pg (28-32) 07/31/19 08:07 MCHC 33 % (30-34) 07/31/19 08:07 RDW 16.4 % (13.2-15.2) H 07/31/19 08:07 Plt Count 339 K/mm3 (140-440) 07/31/19 08:07 Lymph % (Auto) 20.9 % (13.4-35.0) 07/30/19 07:29 [place] % (Auto) 7.5 % (0.0-7.3) H 07/30/19 07:29 Eos % (Auto) 0.5 % (0.0-4.3) 07/30/19 07:29 Baso % (Auto) 0.7 % (0.0-1.8) 07/30/19 07:29 Lymph # 2.4 K/mm3 (1.2-5.4) 07/30/19 07:29 [place] # 0.9 K/mm3 (0.0-0.8) H 07/30/19 07:29 Eos # 0.1 K/mm3 (0.0-0.4) 07/30/19 07:29 Baso # 0.1 K/mm3 (0.0-0.1) 07/30/19 07:29 Seg Neutrophils % 70.4 % (40.0-70.0) H 07/30/19 07:29 Seg Neutrophils # 8.0 K/mm3 (1.8-7.7) H 07/30/19 07:29 Sodium 141 mmol/L (137-145) 07/31/19 08:07 Potassium 4.1 mmol/L (3.6-5.0) 07/31/19 08:07 Chloride 105.3 mmol/L (98-107) 07/31/19 08:07 Carbon Dioxide 21 mmol/L (22-30) L 07/31/19 08:07 Anion Gap 19 mmol/L 07/31/19 08:07 BUN 26 mg/dL (7-17) H 07/31/19 08:07 Creatinine 1.0 mg/dL (0.7-1.2) 07/31/19 08:07 Estimated GFR 58 ml/min 07/31/19 08:07 BUN/Creatinine Ratio 26 % 07/31/19 08:07 Glucose 91 mg/dL (65-100) 07/31/19 08:07 POC Glucose 114 (70-105) H 07/31/19 20:18 Hemoglobin A1c 5.7 % (4-6) 07/30/19 07:29 Calcium 8.8 mg/dL (8.4-10.2) 07/31/19 08:07 Triglycerides 201 mg/dL (2-149) H 07/31/19 08:07 Cholesterol 177 mg/dL (50-199) 07/31/19 08:07 LDL Cholesterol Direct 103 mg/dL (50-130) 07/31/19 08:07 HDL Cholesterol 56 mg/dL (40-59) 07/31/19 08:07 Cholesterol/HDL Ratio 3.16 % 07/31/19 08:07 Last Vital Signs Temp 97.3 F L 07/31/19 19:47 Pulse 85 07/31/19 21:03 Resp 18 08/01/19 02:37 BP 150/72 07/31/19 21:03 Pulse Ox 92 07/31/19 19:47
[2019-08-01] MEDS: PLAVIX PO SCH (10:28)
[2019-08-01] MEDS: BUSPAR PO SCH ×4 (10:28→21:00)
[2019-08-01] MEDS: PROTONIX PO SCH (10:28)
[2019-08-01] MEDS: HALFPRIN EC PO SCH (10:29)
[2019-08-01] MEDS: CYMBALTA PO SCH (10:29)
[2019-08-01] MEDS: NEURONTIN PO SCH ×3 (10:29→21:11)
[2019-08-01] MEDS: HABITROL TD SCH (10:31)
[2019-08-01] MEDS: LOPRESSOR PO SCH ×2 (10:42→21:10)
[2019-08-01] MEDS ORDERED: LOPRESSOR PO SCH ×2 (14:31→22:00)
--- NOTE | 2019-08-01 14:33 | Progress Note ---
Assessment and Plan Assessment and plan: Patient is a 53-year-old female with past medical history of anxiety disorder, CHF, COPD, CAD, depression, hyperlipidemia, hypertension, schizophrenia, GERD, who presents to us from referring facility with depression and suicidal thoughts Stating that she wanted to end her life. Per documentation the patient had in the past tried to overdose on pills. She does not endorse to any other medical condition but reports recent fall and injury to the right foot. she complains of multiple other psych issues but states she will rather speak to the psychiatrist. Per documentation review, the Patient was recently treated for Pneumonia, She denies any fever, nausea, vomiting or diarrhea xray foot: Medial malleolar fracture is ununited but is transfixed by hardware Hypotension- could be due to newly started Minipress with the Metoprolol. Will decrease dose of Metoprolol PNA- Recently treated Leukocytosis secondary PNA-Resolved DELIA secondary to vasomotor nephropathy creat of 1.4 ?baseline. -resolved Stable CHF COPD S/P Medial Malleolar Fracture MORBID OBESITY RECENT INJURY TO RIGHT LEG, NO REPORT OF FRACTURE HTN HLP DEPRESSION SUICIDAL IDEATION SCHIZOPHRENIA GERD PLAN Monitor off Abx Outpatient Ortho Evaluation Resume Foot [place]. Adjust Pain control Resume all outside meds and defer psych meds to psychiatrist counselling on weight loss Pain control DVT/GI prophy History Interval history: Called to review patient: Hospitalist Physical - Physical exam Narrative exam: VITAL SIGNS: Reviewed. GENERAL: The patient appears normally developed, Vital signs as documented. HEAD: No signs of head trauma. EYES: Pupils are equal. Extraocular motions intact. EARS: Hearing grossly intact. MOUTH: Oropharynx is normal. NECK: No adenopathy, no JVD. CHEST: Chest with clear breath sounds bilaterally. No wheezes, rales, or rhonchi. CARDIAC: Regular rate and rhythm. S1 and S2, without murmurs, gallops, or rubs. VASCULAR: No Edema. Peripheral pulses normal and equal in all extremities. ABDOMEN: Soft, non tender and non distended. No rebound or guarding, and no masses palpated. Bowel Sounds normal. MUSCULOSKELETAL: Good range of motion of all major joints. Extremities without clubbing, cyanosis or edema. NEUROLOGIC EXAM: Alert and oriented x 3 No focal sensory or strength deficits. Speech normal. Follows commands. PSYCHIATRIC: Mood normal. SKIN: detail exam as documented in skin assessment, Echymosis on the right foot, some tenderness - Constitutional Vitals: Temp Pulse Resp BP Pulse Ox 97.9 F 97 H 18 91/61 95 08/01/19 08:43 08/01/19 10:42 08/01/19 08:43 08/01/19 10:42 08/01/19 08:43 General appearance: Present: no acute distress, well-nourished, obese Results - Labs CBC & Chem 7: 07/31/19 08:07 07/31/19 08:07 Labs: Laboratory Last Values WBC 8.3 K/mm3 (4.5-11.0) 07/31/19 08:07 RBC 3.81 M/mm3 (3.65-5.03) 07/31/19 08:07 Hgb 10.9 gm/dl (10.1-14.3) 07/31/19 08:07 Hct 33.1 % (30.3-42.9) 07/31/19 08:07 MCV 87 fl (79-97) 07/31/19 08:07 MCH 29 pg (28-32) 07/31/19 08:07 MCHC 33 % (30-34) 07/31/19 08:07 RDW 16.4 % (13.2-15.2) H 07/31/19 08:07 Plt Count 339 K/mm3 (140-440) 07/31/19 08:07 Lymph % (Auto) 20.9 % (13.4-35.0) 07/30/19 07:29 [place] % (Auto) 7.5 % (0.0-7.3) H 07/30/19 07:29 Eos % (Auto) 0.5 % (0.0-4.3) 07/30/19 07:29 Baso % (Auto) 0.7 % (0.0-1.8) 07/30/19 07:29 Lymph # 2.4 K/mm3 (1.2-5.4) 07/30/19 07:29 [place] # 0.9 K/mm3 (0.0-0.8) H 07/30/19 07:29 Eos # 0.1 K/mm3 (0.0-0.4) 07/30/19 07:29 Baso # 0.1 K/mm3 (0.0-0.1) 07/30/19 07:29 Seg Neutrophils % 70.4 % (40.0-70.0) H 07/30/19 07:29 Seg Neutrophils # 8.0 K/mm3 (1.8-7.7) H 07/30/19 07:29 Sodium 141 mmol/L (137-145) 07/31/19 08:07 Potassium 4.1 mmol/L (3.6-5.0) 07/31/19 08:07 Chloride 105.3 mmol/L (98-107) 07/31/19 08:07 Carbon Dioxide 21 mmol/L (22-30) L 07/31/19 08:07 Anion Gap 19 mmol/L 07/31/19 08:07 BUN 26 mg/dL (7-17) H 07/31/19 08:07 Creatinine 1.0 mg/dL (0.7-1.2) 07/31/19 08:07 Estimated GFR 58 ml/min 07/31/19 08:07 BUN/Creatinine Ratio 26 % 07/31/19 08:07 Glucose 91 mg/dL (65-100) 07/31/19 08:07 POC Glucose 114 (70-105) H 07/31/19 20:18 Hemoglobin A1c 5.7 % (4-6) 07/30/19 07:29 Calcium 8.8 mg/dL (8.4-10.2) 07/31/19 08:07 Triglycerides 201 mg/dL (2-149) H 07/31/19 08:07 Cholesterol 177 mg/dL (50-199) 07/31/19 08:07 LDL Cholesterol Direct 103 mg/dL (50-130) 07/31/19 08:07 HDL Cholesterol 56 mg/dL (40-59) 07/31/19 08:07 Cholesterol/HDL Ratio 3.16 % 07/31/19 08:07 Active Medications - Current Medications Current Medications: Generic Name Dose Route Start Last Admin Trade Name Freq PRN Reason Stop Dose Admin Albuterol 2.5 mg 07/30/19 07:41 07/30/19 07:47 Proventil IH 2.5 mg Q4HRT PRN Administration Shortness Of Breath Aspirin 81 mg 07/30/19 15:00 08/01/19 10:29 Halfprin Ec PO 81 mg DAILY [facility] Administration Atorvastatin Calcium 40 mg 07/30/19 14:45 08/01/19 10:30 Lipitor PO 40 mg DAILY [facility] Administration Buspirone HCl 15 mg 07/31/19 22:00 08/01/19 13:29 Buspar PO 15 mg QID [facility] Administration Clonazepam 0.5 mg 07/30/19 16:00 08/01/19 10:31 Klonopin PO 0.5 mg BID [facility] Administration Clopidogrel Bisulfate 75 mg 07/30/19 15:00 08/01/19 10:28 Plavix PO 75 mg DAILY [facility] Administration Divalproex Sodium 1,000 mg 07/31/19 10:00 08/01/19 10:30 Depakote Er PO 1,000 mg QDAY [facility] Administration Duloxetine HCl 60 mg 07/30/19 16:00 08/01/19 10:29 Cymbalta PO 60 mg QDAY [facility] Administration Ergocalciferol 50,000 unit 08/03/19 15:31 Vitamin D2 PO Sa [facility] Gabapentin 900 mg 07/30/19 20:00 08/01/19 13:27 Neurontin PO 900 mg TID [facility] Administration Hydroxyzine Pamoate 50 mg 07/31/19 10:33 Vistaril PO Q6H PRN Anxiety Meclizine HCl 25 mg 07/30/19 14:40 Antivert PO TID PRN Vertigo Metoprolol Tartrate 25 mg 08/01/19 14:31 Lopressor PO BID [facility] Miscellaneous Medication 75 mcg 07/30/19 14:45 Buprenorphine Hcl [Belbuca] SUBMUCOSAL BID [facility] Miscellaneous Medication 1 puff 07/30/19 14:45 Fluticasone/Umeclidin/Vilanter [Trelegy Ellipta 100-62.5-25] INHALATION DAILY [facility] Nicotine 21 mg 07/30/19 15:00 08/01/19 10:31 Habitrol TD 21 mg QDAY [facility] Administration Pantoprazole Sodium 40 mg 07/30/19 15:00 08/01/19 10:28 Protonix PO 40 mg DAILY [facility] Administration Prazosin HCl 1 mg 07/30/19 22:00 07/31/19 21:03 Minipress PO 1 mg HS [facility] Administration Quetiapine Fumarate 200 mg 07/30/19 22:00 07/31/19 21:02 Seroquel PO 200 mg QHS [facility] Administration Tramadol HCl 50 mg 07/31/19 15:34 08/01/19 10:32 Ultram PO 08/02/19 23:59 50 mg Q6H PRN Administration Pain, Moderate (4-6)
[2019-08-01] MEDS ORDERED: NORCO 7.5/325 PO PRN (14:56)
[2019-08-01] MEDS: MINIPRESS PO SCH (21:15)
--- NOTE | 2019-08-02 09:08 | Discharge Summary ---
Providers - Providers Date of Admission: 07/30/19 00:54 Date of discharge: 08/02/19 Attending physician: ALL PATEL MD 07/30/19 08:00 Consult to Physician [CONS] Routine Comment: Consulting Provider: CARRILLO DUNN Physician Instructions: Reason For Exam: H&P, MEDICAL MGMT Primary care physician: HR GENERALIST Hospitalization Reason for admission: Depressed and suicidal Condition: Stable Hospital course: The patient was provided inpatient psychiatric treatment with safe and supportive environment, group therapy, individual counseling, psychiatric medication, medication adjustment, adverse effect monitor, medical evaluation, medical treatment, social service assessment, family/social support meeting, placement assessment and psycho-education. The patients mood, anxiety, thoughts, stress management skill, cognition, impulse/anger control, motivation, understanding of disease, compliance to treatment and appreciation on family/social support are improved and stabilized. At the time of discharge, the patient had no suicidal ideas, no homicidal ideas, no aggressive thoughts, no endangering behavior and no debilitating adverse effects. Disposition: DC- TO HOME OR SELFCARE Allergies/Adverse Reactions: Allergies IV Contrast Adverse Reaction (Uncoded 07/30/19 01:35) Kidneys shut down Vital Signs: Last Vital Signs Temp 97.6 F 08/01/19 23:14 Pulse 98 H 08/01/19 23:14 Resp 18 08/01/19 23:14 BP 91/61 08/01/19 10:42 Pulse Ox 94 08/01/19 23:14 Last Lab: Laboratory Last Values WBC 8.3 K/mm3 (4.5-11.0) 07/31/19 08:07 RBC 3.81 M/mm3 (3.65-5.03) 07/31/19 08:07 Hgb 10.9 gm/dl (10.1-14.3) 07/31/19 08:07 Hct 33.1 % (30.3-42.9) 07/31/19 08:07 MCV 87 fl (79-97) 07/31/19 08:07 MCH 29 pg (28-32) 07/31/19 08:07 MCHC 33 % (30-34) 07/31/19 08:07 RDW 16.4 % (13.2-15.2) H 07/31/19 08:07 Plt Count 339 K/mm3 (140-440) 07/31/19 08:07 Lymph % (Auto) 20.9 % (13.4-35.0) 07/30/19 07:29 Archuleta % (Auto) 7.5 % (0.0-7.3) H 07/30/19 07:29 Eos % (Auto) 0.5 % (0.0-4.3) 07/30/19 07:29 Baso % (Auto) 0.7 % (0.0-1.8) 07/30/19 07:29 Lymph # 2.4 K/mm3 (1.2-5.4) 07/30/19 07:29 Archuleta # 0.9 K/mm3 (0.0-0.8) H 07/30/19 07:29 Eos # 0.1 K/mm3 (0.0-0.4) 07/30/19 07:29 Baso # 0.1 K/mm3 (0.0-0.1) 07/30/19 07:29 Seg Neutrophils % 70.4 % (40.0-70.0) H 07/30/19 07:29 Seg Neutrophils # 8.0 K/mm3 (1.8-7.7) H 07/30/19 07:29 Sodium 141 mmol/L (137-145) 07/31/19 08:07 Potassium 4.1 mmol/L (3.6-5.0) 07/31/19 08:07 Chloride 105.3 mmol/L (98-107) 07/31/19 08:07 Carbon Dioxide 21 mmol/L (22-30) L 07/31/19 08:07 Anion Gap 19 mmol/L 07/31/19 08:07 BUN 26 mg/dL (7-17) H 07/31/19 08:07 Creatinine 1.0 mg/dL (0.7-1.2) 07/31/19 08:07 Estimated GFR 58 ml/min 07/31/19 08:07 BUN/Creatinine Ratio 26 % 07/31/19 08:07 Glucose 91 mg/dL (65-100) 07/31/19 08:07 POC Glucose 114 (70-105) H 07/31/19 20:18 Hemoglobin A1c 5.7 % (4-6) 07/30/19 07:29 Calcium 8.8 mg/dL (8.4-10.2) 07/31/19 08:07 Triglycerides 201 mg/dL (2-149) H 07/31/19 08:07 Cholesterol 177 mg/dL (50-199) 07/31/19 08:07 LDL Cholesterol Direct 103 mg/dL (50-130) 07/31/19 08:07 HDL Cholesterol 56 mg/dL (40-59) 07/31/19 08:07 Cholesterol/HDL Ratio 3.16 % 07/31/19 08:07 Valproic Acid 28.0 ug/mL (50-100) L 08/02/19 07:06 - Discharge Diagnoses (1) Schizoaffective disorder, bipolar type Status: Acute Core Measure Documentation - Palliative Care Palliative Care/ Comfort Measures: Not Applicable - Core Measures Any of the following diagnoses?: none Exam - Constitutional Vitals: Temp Pulse Resp BP Pulse Ox 97.6 F 98 H 18 91/61 94 08/01/19 23:14 08/01/19 23:14 08/01/19 23:14 08/01/19 10:42 08/01/19 23:14 General appearance: Present: no acute distress, well-nourished - EENT Eyes: Present: PERRL, EOM intact ENT: hearing intact - Neck Neck: Present: supple - Respiratory Respiratory effort: normal Plan Activity: advance as tolerated Weight Bearing Status: Weight Bear as Tolerated Care Plan Goals: Maintain good and stable mood Plan of Treatment: Take medications as prescribed and attend outpatient appointments Health Concerns: None Assessment: Schizoaffective disorder Follow up with: PRIMARY CARE, [Primary Care Provider] - 7 Days Prescriptions: QUEtiapine [SEROquel] 200 mg PO QHS #30 tablet DULoxetine [Cymbalta] 60 mg PO QDAY #60 capsule Divalproex ER [Depakote ER] 1,000 mg PO QDAY #90 tablet clonazePAM [KlonoPIN] 0.5 mg PO HS #14 tablet Prazosin [Minipress] 1 mg PO HS #30 capsule hydrOXYzine PAMOATE [Vistaril] 50 mg PO Q6H PRN #90 capsule PRN Reason: Anxiety
[2019-08-02] MEDS: CYMBALTA PO SCH (10:17)
[2019-08-02] MEDS: PLAVIX PO SCH (10:18)
[2019-08-02] MEDS: LOPRESSOR PO SCH (10:18)
[2019-08-02 10:21] VITALS: BP 101/62
[2019-08-02] MEDS: NEURONTIN PO SCH (10:29)
[2019-08-02] MEDS: PROTONIX PO SCH (10:30)
[2019-08-02] MEDS: BUSPAR PO SCH (10:30)
[2019-08-02] MEDS: HABITROL TD SCH (10:32)
[2019-08-02] MEDS: HALFPRIN EC PO SCH (10:32)
[2019-08-03] MEDS ORDERED: VITAMIN D2 PO SCH (15:31)
[2019-08-06] MEDS ORDERED: VITAMIN D2 50000 UNIT PO SCH (10:00)
== END 2019-08-02 11:00 | disposition home or self-care (01) | DRG 885 ==
LOC: 3A 23:01 → UNDOADMIN 23:01 → 5A 07-30 00:54
PROVIDERS: ADMIT Psychiatry & Neurology Psychiatry; ATTEND Psychiatry & Neurology Psychiatry
DX: F25.0 Schizoaffective disorder, bipolar type (principal); J18.9 Pneumonia, unspecified organism; N17.0 Acute kidney failure with tubular necrosis; F41.9 Anxiety disorder, unspecified; I50.9 Heart failure, unspecified; J44.9 Chronic obstructive pulmonary disease, unspecified; I25.10 Atherosclerotic heart disease of native coronary artery without angina pectoris; F32.9 Major depressive disorder, single episode, unspecified; F03.90 Unspecified dementia, unspecified severity, without behavioral disturbance, psychotic disturbance, mood disturbance, and anxiety; F17.210 Nicotine dependence, cigarettes, uncomplicated; E66.01 Morbid (severe) obesity due to excess calories; E78.5 Hyperlipidemia, unspecified; Z60.2 Problems related to living alone; I11.0 Hypertensive heart disease with heart failure; K21.9 Gastro-esophageal reflux disease without esophagitis; Z91.041 Radiographic dye allergy status; Z79.51 Long term (current) use of inhaled steroids; Z79.899 Other long term (current) drug therapy; Z79.82 Long term (current) use of aspirin; Z68.35 Body mass index [BMI] 35.0-35.9, adult; Z90.710 Acquired absence of both cervix and uterus; Z95.5 Presence of coronary angioplasty implant and graft; Z90.49 Acquired absence of other specified parts of digestive tract; Z90.722 Acquired absence of ovaries, bilateral
CPT/HCPCS: 36415; 80048; 80061; 80164; 82962; 83036; 85025; 85027; 94640; 94760; G0378; A9270-GY